=== PATIENT | female | born 1945 | race Caucasian/White ===

== ENCOUNTER → 2017-01-11 | Outpatient (CLI) | payer MEDICARE, OTHER ==
[~2017-01-11] MED LIST: ALLEGRA180 MG PO; ARAVA; ARAVA 20MG TABL20 MG PO; ARAVA10 MG PO; ATROVENT NASAL15 ML NS; CELLUVISC OP; COLESTID5 GM/PACKE PO; COREG 3.123.125 MG/T PO; DESYREL 50MG50 MG PO; DIFLUCAN 100MG100 MG PO; EFFEXOR XR75 MG/CAP PO; EMBREL SQ; ENBREL25 MG SC; ENBREL50 MG/ML SC; ENJUVIA0.3 MG PO; ESTRATEST HS; FLOVENT 110MCG7.9 GM IH; GABAPENTIN300 M1 PO; HCTZ 25MG TAB25 MG PO; HCTZ12.5TAB PO; LASIX 20MG TABL20 MG PO; LEVOXYL0.025 MG PO; LISINOPRIL10 MG PO; NASONEX SPRAY17 GM NS; NEURONTIN300 MG/CAP PO; NEXIUM 40MG40 MG PO; NORCO 325 MG-51 TAB PO; OSCAL W/VIT D250 MG PO; PLAQUENIL 200M200 MG PO; PLAQUENIL PO; PREDNISONE10 MG PO; PREMARIN .3MG0.3 MG PO; PREVACID 30MG30 MG PO; PRINIVIL40 MG PO; PROVENTIL0.09 MG/A1 IH; REFRESH PLUS1 SOL OP; RESTASIS0.05%; RESTASIS0.05% OP; RT ADVAIR 128 DISKUS IH; RT SPIRIVA18 MCG IH; SALAGEN 5MG TAB5 MG PO; SINGULAIR 110 MG/TAB PO; SINGULAIR10 MG PO; SYNTHROID 0.10.15 MG PO; SYNTHROID0.125 MG/T PO; TAMIFLU 75MG75 MG PO; THEO-24400 MG; THEO-DUR 3300 MG/TAB PO; TRAZODO50 MG PO; ULTRAM 50MG TAB50 MG PO; VALTREX PO; VALTREX1 GM PO; VENTOLIN0.09 MG IH; XYAL5 MG PO; ZESTRIL30 MG PO; ZESTRIL40 MG PO; ZYRTEC 10MG10 MG PO
== END ==
LOC: MC.RAD 11:00
DX: Z12.31 Encounter for screening mammogram for malignant neoplasm of breast (principal)

== ENCOUNTER 2017-03-21 13:29 | Emergency (ER) | payer MEDICARE, OTHER ==
[~2017-03-21] VITALS: Ht 154.9 cm; Wt 59.1 kg
[~2017-03-21 13:29] MED LIST changes: -RESTASIS0.05%; +RESTASIS0.05% OU
[2017-03-21 13:32] VITALS: BP 142/62; PULSE 111; TEMP 96.5
[2017-03-21] MEDS ORDERED: REFRESH PLUS 00.4 M1 OP (14:14)
[2017-03-21] MEDS ORDERED: ATARAX 25MG25 MG/TAB PO (14:16)
[2017-03-21] MEDS ORDERED: SYNTHROID0.125 MG/T PO (14:17)
[2017-03-21] MEDS ORDERED: RT ADVAIR 228 DISKUS IH (14:18)
[2017-03-21] MEDS ORDERED: THEO-24 30300 MG/CAP PO (14:19)
[2017-03-21] MEDS ORDERED: PRIL40 PO (14:20)
[2017-03-21] MEDS ORDERED: PREMARIN VAG42.5 GM VG (14:21)
[2017-03-21] MEDS ORDERED: VITAMIN D31000 IU PO (14:23)
[2017-03-21] MEDS ORDERED: FOSAMAX 70MG TA70 MG PO (14:24)
[2017-03-21] MEDS ORDERED: CEPHALEXIN500 M1 PO (14:54)
== END 2017-03-21 15:21 | disposition home or self-care (01) ==
LOC: COL.ER 13:29
DX: S81.802A Unspecified open wound, left lower leg, initial encounter (principal); J44.9 Chronic obstructive pulmonary disease, unspecified; I10 Essential (primary) hypertension; M06.9 Rheumatoid arthritis, unspecified; Z87.891 Personal history of nicotine dependence

== ENCOUNTER → 2017-04-01 | Outpatient (CLI) | payer MEDICARE, OTHER ==
[~2017-04-01] MED LIST changes: +ATARAX 25MG25 MG/TAB PO; +CEPHALEXIN500 M1 PO; +FOSAMAX 70MG TA70 MG PO; +PREMARIN VAG42.5 GM VG; +PRIL40 PO; +REFRESH PLUS 00.4 M1 OP; +RT ADVAIR 228 DISKUS IH; +THEO-24 30300 MG/CAP PO; +VITAMIN D31000 IU PO
== END ==
LOC: ZCOL.LAB 14:10
DX: I83.028 Varicose veins of left lower extremity with ulcer other part of lower leg (principal)

== ENCOUNTER → 2017-04-27 | Outpatient (CLI) | payer MEDICARE, OTHER | LOC: COL.VAS 12:28 | DX: I83.022 Varicose veins of left lower extremity with ulcer of calf (principal); L97.221 Non-pressure chronic ulcer of left calf limited to breakdown of skin ==

== ENCOUNTER → 2018-03-13 | Outpatient (CLI) | payer MEDICARE, OTHER | LOC: MC.RAD 10:05 | DX: Z12.31 Encounter for screening mammogram for malignant neoplasm of breast (principal) ==

== ENCOUNTER → 2018-08-18 | Outpatient (CLI) | payer MEDICARE, OTHER | LOC: COL.RAD 13:30 | DX: M54.31 Sciatica, right side (principal); M53.3 Sacrococcygeal disorders, not elsewhere classified | CPT/HCPCS: G0260; J3301 ==

== ENCOUNTER → 2018-10-18 | Outpatient (CLI) | payer MEDICARE, OTHER ==
[~2018-10-18] MED LIST changes: +ATROVENTNS0.03% NS; +FLONASEALLERGY NS; +MASON NATURAL2000 IU; +NEURONTIN300 MG/CAP; +PREVACID 15MG15 M1 PO
== END ==
LOC: COL.RAD 10:24
DX: K22.8 Other specified diseases of esophagus (principal); R47.02 Dysphasia; Z98.890 Other specified postprocedural states

== ENCOUNTER → 2019-01-16 | Outpatient (CLI) | payer MEDICARE, OTHER | LOC: MC.RAD 13:15 | DX: Z12.31 Encounter for screening mammogram for malignant neoplasm of breast (principal) ==

== ENCOUNTER 2020-10-24 00:33 | Emergency (ER) | payer MEDICARE, OTHER ==
[~2020-10-24] VITALS: Ht 152.4 cm; Wt 62.7 kg
[2020-10-24 03:18] VITALS: BP 129/74; PULSE 93; TEMP 97.3
== END 2020-10-24 03:18 | disposition home or self-care (01) ==
LOC: COL.ER 00:33
DX: S01.01XA Laceration without foreign body of scalp, initial encounter (principal); M54.2 Cervicalgia; J44.9 Chronic obstructive pulmonary disease, unspecified; E03.9 Hypothyroidism, unspecified; K21.9 Gastro-esophageal reflux disease without esophagitis; Z79.890 Hormone replacement therapy; Z79.899 Other long term (current) drug therapy; Z88.5 Allergy status to narcotic agent; W01.190A Fall on same level from slipping, tripping and stumbling with subsequent striking against furniture, initial encounter; Y92.001 Dining room of unspecified non-institutional (private) residence as the place of occurrence of the external cause

== ENCOUNTER 2021-10-01 19:05 | Emergency (ER) | payer MEDICARE, OTHER ==
[~2021-10-01] VITALS: Ht 149.9 cm; Wt 66.4 kg
[2021-10-01 19:12] VITALS: TEMP 98.6
[2021-10-01 20:00] LABS: MEAN CELL VOLUME 97 fl (80.0-100.0); MEAN CORPUSCULAR HEMOGLOBIN 33 pg (27-31); MEAN CORPUSCULAR HGB CONC 33 g/dl (33.0-37.0); MEAN PLATELET VOLUME 10.6 fl (7.4-10.4); PLATELET COUNT 258 K/mm3 (130-400); RED BLOOD COUNT 3.08 M/mm3 (4.10-5.30); REDCELL DISTRIBUTION WIDTH-CV 13.1 % (11.5-14.5)
[2021-10-01 20:02] LABS: HEMATOCRIT 29.9 % (37.0-47.0)
[2021-10-01 20:17] LABS: ALBUMIN 3.3 gm/dL (3.4-4.8); BILIRUBIN,TOTAL 0.6 mg/dL (0.2-1.2); CALCIUM 9.4 mg/dL (8.4-10.2); CREATININE, serum 1.23 mg/dL (0.57-1.11); POTASSIUM 3.9 mmol/L (3.5-4.5); TOTAL PROTEIN 6.5 gm/dL (6.2-8.1)
[2021-10-01 20:40] LABS: BAND 2 % (0-10); EOSINOPHIL 3 % (0-4); LYMPHOCYTE 16 % (20.0-51.0); METAMYELOCYTE 2 % (0-0); NEUTROPHILS 73 % (42.0-75.2); PLATELET ESTIMATE NORMAL (NORMAL)
[2021-10-01 21:15] VITALS: BP 107/65; PULSE 85
[2021-10-01] MEDS ORDERED: VALTREX 50500 MG/TAB PO (23:16)
[2021-10-01] MEDS ORDERED: CARDIZEM 60MG T60 MG PO (23:17)
[2021-10-01] MEDS ORDERED: TRIAMCINOLONE A15 G3 TP (23:17)
[2021-10-01] MEDS ORDERED: ZYRTEC 10MG10 MG PO (23:18)
[2021-10-01] MEDS ORDERED: PROTONIX 40MG T40 MG PO (23:18)
[2021-10-01] MEDS ORDERED: RT SPIRIVA18 MCG IH (23:19)
[2021-10-01] MEDS ORDERED: RT ADVAIR 228 DISKUS IH (23:19)
[2021-10-01] MEDS ORDERED: EFFEXOR-XR150 MG PO (23:19)
[2021-10-01] MEDS ORDERED: MINOXIDIL 2.5 PO (23:19)
[2021-10-01] MEDS ORDERED: ATARAX 25MG25 MG/TAB PO ×2 (23:20→23:21)
[2021-10-01] MEDS ORDERED: FOSAMAX 70MG TA70 MG PO (23:20)
[2021-10-01] MEDS ORDERED: DESYREL 50MG50 MG PO (23:21)
[2021-10-01] MEDS ORDERED: TEMOVATE0.052 TOP (23:24)
[2021-10-01] MEDS ORDERED: SYNTHROID0.137 MG (23:24)
[2021-10-01] MEDS ORDERED: PLAQUENIL 200M200 MG PO (23:24)
== END 2021-10-01 21:37 | disposition home or self-care (01) ==
LOC: COL.ER 19:05
PROVIDERS: Family Medicine
DX: J44.9 Chronic obstructive pulmonary disease, unspecified (principal); J98.11 Atelectasis; J90 Pleural effusion, not elsewhere classified; Z87.891 Personal history of nicotine dependence
CPT/HCPCS: J7030; Q9967

== ENCOUNTER 2021-12-30 18:15 | Emergency (ER) | payer MEDICARE, OTHER ==
[~2021-12-30] VITALS: Ht 149.9 cm; Wt 59.1 kg
[~2021-12-30 18:15] MED LIST changes: +CARDIZEM 60MG T60 MG PO; +EFFEXOR-XR150 MG PO; +MINOXIDIL 2.5 PO; +PROTONIX 40MG T40 MG PO; +SYNTHROID0.137 MG; +TEMOVATE0.052 TOP; +TRIAMCINOLONE A15 G3 TP; +VALTREX 50500 MG/TAB PO
[2021-12-30 18:18] VITALS: TEMP 98.8
[2021-12-30 18:44] LABS: BASO % 0.2 % (0.0-2.0); EOS # 0.1 K/mm3 (0.0-0.7); EOS % 1.9 % (0.0-4.0); GRAN # 3.8 K/mm3 (1.4-6.5); GRAN % 70.8 % (42.2-75.2); HEMOGLOBIN 12.2 g/dl (12.5-16.0); LYMPH # 0.9 K/mm3 (1.2-3.4); LYMPH % 17.5 % (20.0-51.0); MEAN CELL VOLUME 96 fl (80.0-100.0); MEAN CORPUSCULAR HEMOGLOBIN 33 pg (27-31); MEAN CORPUSCULAR HGB CONC 34 g/dl (33.0-37.0); MEAN PLATELET VOLUME 10.4 fl (7.4-10.4); MONO # 0.5 K/mm3 (0.1-0.6); MONO % 9.6 % (1.7-9.3); PLATELET COUNT 176 K/mm3 (130-400); RED BLOOD COUNT 3.75 M/mm3 (4.10-5.30); REDCELL DISTRIBUTION WIDTH-CV 13.2 % (11.5-14.5)
[2021-12-30 19:06] LABS: ALBUMIN 4.2 gm/dL (3.4-4.8); BILIRUBIN,TOTAL 0.7 mg/dL (0.2-1.2); CREATININE, serum 0.92 mg/dL (0.57-1.11); TOTAL PROTEIN 7.3 gm/dL (6.2-8.1)
[2021-12-30 19:11] LABS: TROPONIN-I 0.019 ng/mL (0.00-0.033)
[2021-12-30] MEDS ORDERED: DOXYCYCLINE 10100 MG PO (20:41)
[2021-12-30] MEDS ORDERED: IPRATROPIUM BROM3 M1 IH (20:41)
[2021-12-30 21:40] VITALS: BP 155/97; PULSE 95
== END 2021-12-30 21:40 | disposition home or self-care (01) ==
LOC: COL.ER 18:15
PROVIDERS: Physician Assistant
DX: U07.1 COVID-19 (principal); J12.82 Pneumonia due to coronavirus disease 2019; Z28.310 Unvaccinated for COVID-19; Z88.1 Allergy status to other antibiotic agents
CPT/HCPCS: J0456; J1100; J7030; J7050; Q0222; Q9967

== ENCOUNTER 2022-06-13 03:20 | Emergency (ER) | payer MEDICARE, OTHER ==
[~2022-06-13] VITALS: Ht 152.4 cm; Wt 59.1 kg
[~2022-06-13 03:20] MED LIST changes: +DOXYCYCLINE 10100 MG PO; +IPRATROPIUM BROM3 M1 IH
[2022-06-13 04:13] LABS: BASO % 0.3 % (0.0-2.0); EOS # 0.1 K/mm3 (0.0-0.7); EOS % 0.8 % (0.0-4.0); GRAN # 7.4 K/mm3 (1.4-6.5); GRAN % 73.4 % (42.2-75.2); HEMATOCRIT 38.5 % (37.0-47.0); HEMOGLOBIN 12.9 g/dl (12.5-16.0); LYMPH # 1.7 K/mm3 (1.2-3.4); LYMPH % 16.8 % (20.0-51.0); MEAN CELL VOLUME 99 fl (80.0-100.0); MEAN CORPUSCULAR HEMOGLOBIN 33 pg (27-31); MEAN CORPUSCULAR HGB CONC 34 g/dl (33.0-37.0); MEAN PLATELET VOLUME 9.8 fl (7.4-10.4); MONO # 0.9 K/mm3 (0.1-0.6); MONO % 8.4 % (1.7-9.3); PLATELET COUNT 193 K/mm3 (130-400); RED BLOOD COUNT 3.88 M/mm3 (4.10-5.30); REDCELL DISTRIBUTION WIDTH-CV 12.6 % (11.5-14.5)
[2022-06-13 04:35] LABS: ERYTHROCYTE SEDIMENTATION RATE 2 mm/hr (0-30)
[2022-06-13 04:39] LABS: ALBUMIN 3.8 gm/dL (3.4-4.8); BILIRUBIN,TOTAL 1.1 mg/dL (0.2-1.2); C-REACTIVE PROTEIN 1.76 mg/dL (0.00-0.50); CALCIUM 8.8 mg/dL (8.4-10.2); CREATININE, serum 0.84 mg/dL (0.57-1.11); POTASSIUM 3.7 mmol/L (3.5-4.5); TOTAL PROTEIN 6.2 gm/dL (6.2-8.1)
[2022-06-13 07:42] VITALS: BP 134/69; PULSE 83; TEMP 97.9
== END 2022-06-13 07:46 | disposition short-term general hospital (02) ==
LOC: COL.ER 03:20
PROVIDERS: Personal Emergency Response Attendant
DX: G06.2 Extradural and subdural abscess, unspecified (principal); R50.9 Fever, unspecified
CPT/HCPCS: J1790; J2270; J2405; J7030